=== PATIENT | male | born 1950 | race Caucasian/White ===

== ENCOUNTER → 2020-02-02 09:50 | Outpatient (CLI) | payer MEDICARE, SELFPAY ==
[2020-02-02 15:10] LABS: Coronavirus 19 IgG Antibody Negative (Negative); Coronavirus 19 IgM Antibody Negative (Negative)
== END ==
PROVIDERS: Visit Provider Internal Medicine Gastroenterology
DX: Z01.818 Encounter for other preprocedural examination (principal); Z12.11 Encounter for screening for malignant neoplasm of colon
CPT/HCPCS: 36415; 86328

== ENCOUNTER 2020-02-04 09:25 | Day surgery (SDC) | payer MEDICARE, SELFPAY ==
[2020-02-03 10:34] VITALS: BMI 27.8
[2020-02-04] VITALS (8 sets, daily range): BP systolic 103–148; BP diastolic 54–90; PULSE 70–81; RESP 18; TEMP 36.5–36.6; O2SAT 95–100
--- NOTE | 2020-02-04 11:29 | P.PCN_ITS ---
[facility] Procedure Note Procedure Note:: Colonoscopy Procedure Report: Colonoscopy with cold snare polypectomy Endoscopist: Alberto Edmond II, MD Referring physician: Dylon Ferguson MD Date of Procedure: February 04, 2020 Equipment: Olympus 180 variable stiffness pediatric colonoscope Sedation: MAC sedation Indication: Mr. Caraballo is a 69-year-old gentleman who is here for initial screening colonoscopy. He reports no abdominal pain, weight loss, change in his bowel habits or rectal bleeding. He reports no family history of colon cancer. The patient does report some alternating constipation or diarrhea depending on what he eats (i.e. dairy or sugars). Procedure: Prior to the procedure, a history and physical exam was performed, and patient's medications and allergies were reviewed. The risks, benefits and alternatives of the sedation and procedure were discussed with the patient. All questions were answered and informed consent was obtained. The patient was brought to the procedure room. Patient identification and proposed procedure were verified by the physician and the nurse. The patient was placed in a left lateral decubitus position and the scope was passed under direct vision. Throughout the procedure, the patient's blood pressure, pulse, and oxygen saturations were monitored continuously. The colonoscopy was accomplished without difficulty. The patient tolerated the procedure well. Findings: On digital rectal examination there was normal rectal tone. There were no external hemorrhoids. The colonoscope was introduced through the anal canal to the rectum and advanced to the cecum. The ileocecal valve and appendiceal orifice were identified. The scope was advanced a short distance into the ileum which appeared grossly normal. The scope was then withdrawn into the colon. There were a total of 5 colon polyps (ascending x1 (6 mm), transverse x1 (4 mm) and descending x3 (3, 3 and 4 mm)) which were all removed via cold snare polypectomy. The remaining cecum, ascending, transverse, descending, sigmoid and rectum were grossly normal. There were no other mucosal abnormalities identified. Upon retroflexion within the rectum there were grade 2 internal hemorrhoids.The preparation was excellent throughout with [place] Preparation Score of 9. The cecal time was 12 minutes. Impression: 1. Colonic polyps x5 2. Grade 2 internal hemorrhoids Plan: I will follow up the polyp pathology and recommend repeat colonoscopy again in 3-5 years based upon the polyp histology. I would encourage good bulk fiber supplementation on a long-term daily maintenance basis.
== END 2020-02-04 12:45 | disposition home or self-care (01) ==
LOC: OUTP 09:29
PROVIDERS: PCP Internal Medicine Adolescent Medicine; Visit Provider Internal Medicine Gastroenterology
PROC: 0DJD8ZZ Inspection of Lower Intestinal Tract, Via Natural or Artificial Opening Endoscopic (ICD-10-PCS; CPT 45378; principal; 2020-02-04 10:30)
DX: Z12.11 Encounter for screening for malignant neoplasm of colon (principal); K63.5 Polyp of colon; K64.1 Second degree hemorrhoids; D64.9 Anemia, unspecified; Z80.9 Family history of malignant neoplasm, unspecified
CPT/HCPCS: 45385; 88305

== ENCOUNTER → 2020-02-21 07:56 | Outpatient (CLI) | payer MEDICARE, SELFPAY ==
[2020-02-21 10:41] LABS: Coronavirus 19 IgG Antibody Negative (Negative); Coronavirus 19 IgM Antibody Negative (Negative)
== END ==
PROVIDERS: Visit Provider Ophthalmology
DX: Z01.818 Encounter for other preprocedural examination (principal); Z98.42 Cataract extraction status, left eye
CPT/HCPCS: 36415; 86328

== ENCOUNTER 2020-02-22 07:55 | Day surgery (SDC) | payer MEDICARE, SELFPAY ==
[2020-02-15 12:55] VITALS: BMI 27.8
[2020-02-22 09:10] VITALS: BP 164/124; PULSE 75; RESP 18; TEMP 36.1; O2SAT 99
[2020-02-22 10:01] VITALS: BP 177/84; PULSE 65; RESP 16; O2SAT 95
[2020-02-22 10:06] VITALS: BP 165/93; PULSE 62; RESP 16; O2SAT 96
[2020-02-22 10:11] VITALS: BP 160/89; PULSE 59; RESP 16; O2SAT 100
[2020-02-22 10:16] VITALS: BP 157/84; PULSE 57; RESP 16; O2SAT 100
[2020-02-22 10:24] VITALS: BP 123/98; PULSE 59; RESP 16; TEMP 36.4; O2SAT 97
== END 2020-02-22 10:33 | disposition home or self-care (01) ==
LOC: OR 07:57
PROVIDERS: PCP Internal Medicine Adolescent Medicine; Visit Provider Ophthalmology
DX: H25.813 Combined forms of age-related cataract, bilateral (principal); H27.8 Other specified disorders of lens; H02.834 Dermatochalasis of left upper eyelid; H02.831 Dermatochalasis of right upper eyelid; M19.90 Unspecified osteoarthritis, unspecified site; H91.90 Unspecified hearing loss, unspecified ear
CPT/HCPCS: 66982; V2632

== ENCOUNTER → 2020-03-06 08:24 | Outpatient (CLI) | payer MEDICARE, SELFPAY ==
[2020-03-06 11:21] LABS: Coronavirus 19 IgG Antibody Negative (Negative); Coronavirus 19 IgM Antibody Negative (Negative)
== END ==
PROVIDERS: Visit Provider Ophthalmology
DX: Z01.818 Encounter for other preprocedural examination (principal); Z03.818 Encounter for observation for suspected exposure to other biological agents ruled out; H25.11 Age-related nuclear cataract, right eye
CPT/HCPCS: 36415; 86328

== ENCOUNTER 2020-03-07 07:46 | Day surgery (SDC) | payer MEDICARE, SELFPAY ==
[2020-02-29 10:34] VITALS: BMI 27.8
[2020-03-07 08:37] VITALS: BP 158/88; PULSE 84; RESP 18; TEMP 36.6; O2SAT 98
[2020-03-07 09:27] VITALS: BP 156/79; PULSE 67; RESP 16; O2SAT 97
[2020-03-07 09:32] VITALS: BP 144/90; PULSE 70; RESP 16; O2SAT 95
[2020-03-07 09:37] VITALS: BP 127/81; PULSE 62; RESP 16; O2SAT 95
[2020-03-07 09:41] VITALS: BP 149/78; PULSE 71; RESP 16; O2SAT 96
[2020-03-07 09:55] VITALS: BP 150/101; PULSE 71; RESP 16; TEMP 36.5; O2SAT 97
== END 2020-03-07 09:55 | disposition home or self-care (01) ==
LOC: OR 07:48
PROVIDERS: PCP Internal Medicine Adolescent Medicine; Visit Provider Ophthalmology
DX: H25.813 Combined forms of age-related cataract, bilateral (principal); H02.834 Dermatochalasis of left upper eyelid; H02.831 Dermatochalasis of right upper eyelid; H91.90 Unspecified hearing loss, unspecified ear; M19.90 Unspecified osteoarthritis, unspecified site; Z87.898 Personal history of other specified conditions
CPT/HCPCS: 66984; V2632

== ENCOUNTER → 2021-04-27 09:12 | Outpatient (CLI) | payer MEDICARE, SELFPAY ==
[2021-04-27 09:16] LABS: MANUAL DIFFERENTIAL MANUAL DIFFERENTIAL (MANUAL DIFF)
[2021-04-27 10:06] LABS: Anion Gap 10.3 mEq/L (5-15); Blood Urea Nitrogen 14 mg/dl (9-20); Calcium 9.3 mg/dl (8.4-10.2); Carbon Dioxide 28 mmol/L (22.0-30.0); Chloride 104 mmol/L (98-107); Estimated Glomerular Filt Rate 96 ml/min (>60); GFR (African American) 116 ML/MIN (>60); Glucose 111 mg/dl (74-100); Potassium 4.3 mmoL/L (3.5-5.1); Sodium 138 mmol/L (136-145)
[2021-04-27 10:17] LABS: Basophils # 0.1 K/mm3 (0-0.2); Basophils % 1.2 % (0.1-2.0); Eosinophils # 0.2 K/mm3 (0.0-0.4); Eosinophils % 3.6 % (0.1-12.0); Hematocrit 48.1 % (42.0-52.0); Lymphocytes # 2.2 K/mm3 (0.7-4.5); Lymphocytes % 35.9 % (10-50); Mean Corpuscular HGB Conc 33.2 g/dL (31.8-35.4); Mean Corpuscular Hemoglobin 32.3 pg (27.0-31.2); Mean Corpuscular Volume 97.2 fl (80-94); Mean Platelet Volume 9.1 fl (7.4-10.4); Monocytes # 0.4 K/mm3 (0.1-1.0); Monocytes % 6.9 % (1.7-9.3); Neutrophils # 3.2 K/mm3 (1.8-7.8); Neutrophils % 52.3 % (37.0-80.0); Platelet Count 211 K/mm3 (142-424); Red Blood Count 4.95 M/mm3 (4.60-6.20)
[2021-04-27 12:44] LABS: Eosinophils % 1 % (0-3); Lymphocytes % 40 % (10-50); Monocytes % 4 % (2-9); Neutrophils % 55 % (42-76); Total Cells Counted 100
[2021-04-27 12:45] LABS: Platelet Estimate Normal; RBC Morphology Normal
== END ==
PROVIDERS: Visit Provider Urology
DX: N47.1 Phimosis (principal); Z01.812 Encounter for preprocedural laboratory examination; Z11.52 Encounter for screening for COVID-19; N52.9 Male erectile dysfunction, unspecified
CPT/HCPCS: 36415; 80048; 85007; 85014; 85018; 85048; 85049; C9803; U0003; U0005

== ENCOUNTER 2021-04-30 08:32 | Day surgery (SDC) | payer MEDICARE, SELFPAY ==
[2021-04-27 11:11] VITALS: BMI 28.5
[2021-04-30] VITALS (8 sets, daily range): BP systolic 152–168; BP diastolic 80–101; PULSE 59–85; RESP 12–18; TEMP 36.2–37; O2SAT 94–100
--- NOTE | 2021-04-30 09:42 | HMH.ANESCL ---
[facility] Anesthesia Checklist - Patient Identification Patient Identification: Arm Band, Verbal (Name & ) - Structural Data Admitted From: Home Planned Operative Procedure/s: Circumcision Consent for Planned Operative Procedure(s) Verified: Yes Verified Documents: Surgical Consent - NPO Status Verified Time NPO: 21:00 - Chart Verification Results Verified: CBC, BMP - Additional verifications Anesthesia Reactions: No Hx Blood Transfusions: No Blood Transfusion Reaction: No - Airway Assessment C-Spine Mobility Assessed: Yes TMJ Mobility Assessed: Yes Dentition: Good Dentition - Neurological Assessment Level of Consciousness: Awake, Alert, Appropriate - Anesthesia Plan Anesthesia Risk discussed: Yes ASA Class: II Anesthesia Type: General [facility] History I have reviewed the patient's past medical history: Yes Medical History: Reports:: Hypertension Denies:: Cancer, Diabetes Mellitus Type 1, Diabetes Mellitus Type 2, Internal Pacemaker, MRSA, Seizures *Have you ever received a pneumonia vaccine?: No *Have you received a flu vaccine this season?: No Other Medical History: Reports: Arthritis. Denies: Blood Transfusion Reaction Anesthesia experience/problems:: none Laterality Cases: Bilateral: Cataract, Tonsillectomy Other Surgeries: Yes: No Previous Surgery, Colonoscopy. No: Pacemaker Amputation: No Fractures: No - *Social History Last grade of school completed: High school graduate Smoking Status: Never smoker Alcohol Intake: never Substance Use Type: denies use *Occupational Status:: retired Housing: house Household Members: spouse *Travel in the last 8 weeks: None Family Hx:: Cancer
--- NOTE | 2021-04-30 11:33 | HMH.ANESI ---
[facility] Anesthesia Record Part I Intake, IV Amount: 800 Estimated blood loss (mL): 5 Urine output (mL): 0 Blood Pressure: 152/95 SaO2: 94 Pulse Rate: 59 Respiratory Rate: 12 Temperature: 98.6 F Patient is:: Drowsy Stable to PACU at:: 11:26
--- NOTE | 2021-04-30 11:40 | P.OP_ITS ---
Date of procedure: 04/30/21 Pre-op Diagnosis:: Phimosis Post-op Diagnosis:: Phimosis Procedure performed:: Adult circumcision Surgeon:: Dallin Logan MD [employer]ES:: Other (isrrael mahan) Anesthesia: LMA Estimated blood loss (mL): 5 Clinical Note:: 70-year-old white male with complaints of the inability to pull back his foreskin and intermittent episodes of balanitis presents for circumcision. Operative findings:: Patient with penile phimosis. Operative note:: Patient taken to the operating room after informed consent was obtained. He was placed on the operating table in supine position and general anesthesia administered. Preoperative antibiotics and sequential compression devices placed. He was then prepped and draped in the standard surgical fashion. A ring block was placed around the base of the penis with 30 cc of local anesthetic. The area of the circumcision was then marked just below the carrasco of the glans. Straight clamp was then used to clamp the foreskin dorsally back to the marked line of circumcision. After 60 seconds the clamp was removed and the foreskin was incised back to the marked line. We were then able to pull the foreskin back and Betasept was placed onto the glans penis. We then completed the circumcision by incising along arm previously marked line in a circumferential fashion. Skin was passed off and hemostasis achieved. A 3-0 chromic then placed at the 12, 3, 9 and 6 o'clock position. A frenulotomy was performed. 3-0 chromic's were then placed between the previously placed sutures and a 4-0 chromic was used to close the frenulotomy incision. Good result was obtained. Compression dressing applied. Patient tolerated well. Condition: stable Disposition: PACU Specimens:: Foreskin Complications:: None
--- NOTE | 2021-04-30 12:03 | SUR.PHASEI ---
[id number]- detailed report called to sharon glass in post op
== END 2021-04-30 12:15 | disposition home or self-care (01) ==
LOC: OR 08:35
PROVIDERS: PCP Internal Medicine Adolescent Medicine; Visit Provider Urology
DX: N47.1 Phimosis (principal); N48.1 Balanitis
CPT/HCPCS: 54150; 96374; J2405

== ENCOUNTER 2024-04-13 08:10 | Day surgery (SDC) | payer MEDICARE, SELFPAY ==
--- NOTE | 2024-04-07 16:51 | SUR.PREOP ---
LEFT MESSAGE W/ CALL BACK # ON 04/07/24
[2024-04-13 09:07] VITALS: BMI 28.5
[2024-04-13] MEDS: APRACLONIDINE 0.5% OPHTH SOLN 5ML OP (09:12)
[2024-04-13] MEDS: TROPICAMIDE 1% OPTH SOLN 2ML OP (09:12)
[2024-04-13] MEDS: TETRACAINE 0.5% OPTH SOL 15ML OP (09:12)
[2024-04-13 09:13] VITALS: BP 139/106; PULSE 90; RESP 18; TEMP 36.4; O2SAT 98
[2024-04-13] MEDS: PHENYLEPHRINE 2.5% OPHTH SOLN 2ML OP (09:13)
--- NOTE | 2024-04-13 10:36 | P.PCN_ITS ---
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 The patient has noticed that the vision has decreased from the previous good level postop. The patient reports that he/she is having trouble reading and/or driving or that glare is giving them a problem. On exam, the patient was found to have visually significant posterior capsular opacification. The treatment options, risks and benefits were explained and the patient elected to have YAG laser capsulotomy in an attempt to improve the vision. Of note, the best corrected visual acuity is in the 20/30 or worse range by refraction or glare testing. The eye was dilated and 1 drop of 0.5% Iopidine applied. YAG laser energy was applied to the posterior capsular bag with good formation of an opening and no complications were noted. The patient will be seen back for follow up in 2 weeks. 22 pulses, 75mj.
== END 2024-04-13 09:41 | disposition home or self-care (01) ==
PROVIDERS: PCP Internal Medicine Adolescent Medicine; Visit Provider Ophthalmology
PROC: (CPT 66821; principal; 2024-04-13 09:30)
DX: H26.491 Other secondary cataract, right eye (principal)
CPT/HCPCS: 66821